=== PATIENT | male | born 1950 | race Caucasian/White ===

== ENCOUNTER → 2016-08-16 | Outpatient (REF) ==
[~2016-08-16] MED LIST: ACTOS 45MG45 MG/TAB PO; ACTOS45 MG PO; ASPIRIN 32325 MG/TAB PO; ASPIRIN E.C. 8181 MG PO; DIABETIC MEDICATION; DIOVAN 80MG80 MG PO; FLEXERIL 1010 MG/TAB PO; LISINOPRIL5 MG PO; LOW DOSE ASPIRI81 MG PO; METOPROLOL SUCC25 M1 PO; NITROSTAT0.4 MG/TAB SL; NORCO 325 MG-51 TAB PO; PLAVIX 75MG TAB75 MG PO; PROBIOTIC FORMU1 CAP PO; Probiotic; SIMVASTATIN40 MG PO; TOPROL XL 25MG25 MG PO; VIAGRA25 MG PO
[2016-08-16 09:37] LABS: PSA-TOTAL 0.56 ng/mL (0-4); THYROID STIMULATING HORMONE 0.669 uIU/mL (0.465-4.680)
== END ==
LOC: ZLAB.WCH 08:50
PROVIDERS: Internal Medicine
DX: Z01.89 Encounter for other specified special examinations (principal)
CPT/HCPCS: G0103

== ENCOUNTER → 2017-06-24 | Outpatient (REF) ==
[2017-06-24 16:37] LABS: PSA-TOTAL 0.41 ng/mL (0-4)
[2017-06-24 17:20] LABS: THYROID STIMULATING HORMONE 0.715 uIU/mL (0.465-4.680)
== END ==
LOC: ZLAB.WCH 15:33
PROVIDERS: Internal Medicine
DX: Z01.89 Encounter for other specified special examinations (principal)
CPT/HCPCS: G0103

== ENCOUNTER 2018-04-15 05:59 | Day surgery (SDC) | payer BC ==
[2018-04-15] VITALS (9 sets, daily range): BP systolic 128–144; BP diastolic 60–75; PULSE 66–100; TEMP 97.7
[~2018-04-15] VITALS: Ht 175.4 cm; Wt 97.0 kg
[2018-04-15] MEDS ORDERED: THEO-DUR 2200 MG/TAB PO (07:07)
[2018-04-15] MEDS ORDERED: EPA FISH OIL1 SGL PO (07:07)
[2018-04-15] MEDS ORDERED: PROBIOTIC ACID1 EAC3 PO (07:08)
[2018-04-15 07:12] LABS: HEMATOCRIT 42.5 % (42.0-52.0); HEMOGLOBIN 14.2 g/dl (13.5-18.0); MEAN CELL VOLUME 95 fl (80.0-100.0); MEAN CORPUSCULAR HEMOGLOBIN 32 pg (27.0-31.0); MEAN CORPUSCULAR HGB CONC 33 g/dl (33.0-37.0); MEAN PLATELET VOLUME 9.1 fl (7.4-10.4); PLATELET COUNT 186 K/mm3 (130-400); RED BLOOD COUNT 4.46 M/mm3 (4.20-5.60); REDCELL DISTRIBUTION WIDTH-CV 12.3 % (11.5-14.5)
[2018-04-15 07:26] LABS: CALCIUM 8.9 mg/dL (8.4-10.2); CREATININE, serum 1.05 mg/dL (0.66-1.25); POTASSIUM 4.6 mmol/L (3.4-5.0)
[2018-04-15 07:48] LABS: PROTHROMBIN TIME 11.7 SECONDS (9.7-12.8)
--- NOTE | 2018-04-15 08:52 | NUR ---
ALL MEDICATIONS GIVEN WITH VERBAL ORDER AND READBACK WITH MD. SEE MERGE FOR ALL MEDICATION ADMIN TIMES. SEE MERGE FOR ALL RASS ASSESSMENTS DURING AND POST PROCEDURE. POSITIVE BARBEAU'S TEST IN THE RIGHT WRIST.
--- NOTE | 2018-04-15 09:30 | NUR ---
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 Report from Elder CHAU. Pt alert and oriented, denies pain and needs at this time. VSS. Right wrist TR band with 12 cc air CD&I, Pulses strong and cap refill < 3 secs noted. Family bedside.
--- NOTE | 2018-04-15 11:30 | NUR ---
Deflated TR by 3 cc air. No bleeding noted
--- NOTE | 2018-04-15 11:43 | NUR ---
3 cc air out of TR band no bleeding noted
--- NOTE | 2018-04-15 12:10 | NUR ---
TR band completely deflated, no bleeding noted. Pressure dressing applied. INT discontinued intact. Discharge instruction given to pt/family. Transferred to private car by jose m
== END 2018-04-15 12:23 | disposition home or self-care (01) ==
LOC: COL.CAR 05:59
PROVIDERS: Internal Medicine Cardiovascular Disease
DX: I25.10 Atherosclerotic heart disease of native coronary artery without angina pectoris (principal); R94.39 Abnormal result of other cardiovascular function study; I10 Essential (primary) hypertension; E11.9 Type 2 diabetes mellitus without complications; E78.00 Pure hypercholesterolemia, unspecified; J45.909 Unspecified asthma, uncomplicated; J42 Unspecified chronic bronchitis; Z79.82 Long term (current) use of aspirin; Z87.891 Personal history of nicotine dependence; Z80.9 Family history of malignant neoplasm, unspecified; Z83.3 Family history of diabetes mellitus; Z82.49 Family history of ischemic heart disease and other diseases of the circulatory system; Z88.8 Allergy status to other drugs, medicaments and biological substances
CPT/HCPCS: J1644; J2250; J3010; Q9967

== ENCOUNTER 2020-08-22 06:25 | Day surgery (SDC) | payer BC ==
[~2020-08-22] VITALS: Ht 175.6 cm; Wt 92.9 kg
[2020-08-22] VITALS (12 sets, daily range): BP systolic 107–137; BP diastolic 49–77; PULSE 56–96; TEMP 97.6
[~2020-08-22 06:25] MED LIST changes: +EPA FISH OIL1 SGL PO; +PROBIOTIC ACID1 EAC3 PO; -SIMVASTATIN40 MG PO; +THEO-DUR 2200 MG/TAB PO; +ZOCOR 40MG40 MG PO
[2020-08-22] MEDS ORDERED: BENICAR 20MG TA20 MG PO (07:04)
[2020-08-22] MEDS ORDERED: VITAMIN D31000 IU PO (07:06)
[2020-08-22] MEDS ORDERED: POTASSIUM GLUC595 M1 PO (07:06)
[2020-08-22] MEDS ORDERED: B-121000 MCG PO (07:09)
[2020-08-22 07:23] LABS: INR 1.1 (0.8-3.0); PROTHROMBIN TIME 11.8 SECONDS (9.7-12.8)
[2020-08-22 07:25] LABS: CALCIUM 9.1 mg/dL (8.4-10.2); CREATININE, serum 1.27 (0.66-1.25); POTASSIUM 4.4 mmol/L (3.4-5.0)
[2020-08-22 07:28] LABS: HEMATOCRIT 41.5 % (42.0-52.0); HEMOGLOBIN 13.6 g/dl (13.5-18.0); MEAN CELL VOLUME 97 fl (80.0-100.0); MEAN CORPUSCULAR HEMOGLOBIN 32 pg (27.0-31.0); MEAN CORPUSCULAR HGB CONC 33 g/dl (33.0-37.0); MEAN PLATELET VOLUME 9.2 fl (7.4-10.4); PLATELET COUNT 177 K/mm3 (130-400); RED BLOOD COUNT 4.29 M/mm3 (4.20-5.60); REDCELL DISTRIBUTION WIDTH-CV 12.5 % (11.5-14.5)
--- NOTE | 2020-08-22 08:55 | NUR ---
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
--- NOTE | 2020-08-22 09:55 | NUR ---
Patient returned from [employer]. at side. Radial band intact to right wrist. Hand warm/pink. Pulse present. Denies any c/o pain/discomfort. Patient given discharge instructions. Provided ice water. No other needs at this time
--- NOTE | 2020-08-22 11:59 | NUR ---
Patient eating lunch. Denies any c/o pain/discomfort. Band remains with 15 ml of air. No hematoma noted. pulse present.
--- NOTE | 2020-08-22 12:30 | NUR ---
Noted a small amount of blood under TR band. Band reinfated 6cc will attempt again in 30 minutes.
--- NOTE | 2020-08-22 13:25 | NUR ---
Released 4ml of air from TR band. Patient without c/o's
--- NOTE | 2020-08-22 14:07 | NUR ---
Removed another 5cc of air at this time. No bleeding noted
--- NOTE | 2020-08-22 14:30 | NUR ---
Band completely released. No noted bleeding. Patient has a small soft bruise to inner aspect of wrist. Reviewed with patient if bruise gets large bruise or tighter to report to the ER. Patient verbalizes understanding. ISAC Trujillo also eval'd bruise. Masoud applied. No c/o's offered
--- NOTE | 2020-08-22 15:00 | NUR ---
Patient dischared to home at this time. Taken to the door via w/c.
== END 2020-08-22 15:00 | disposition home or self-care (01) ==
LOC: COL.CAR 06:25
PROVIDERS: Internal Medicine Cardiovascular Disease
DX: R06.02 Shortness of breath (principal); R94.39 Abnormal result of other cardiovascular function study; R06.00 Dyspnea, unspecified; J44.9 Chronic obstructive pulmonary disease, unspecified; I25.10 Atherosclerotic heart disease of native coronary artery without angina pectoris; E11.9 Type 2 diabetes mellitus without complications; E78.5 Hyperlipidemia, unspecified; I10 Essential (primary) hypertension; I27.20 Pulmonary hypertension, unspecified; Z20.822 Contact with and (suspected) exposure to COVID-19
CPT/HCPCS: C1769; J1644; J2250; J3010; Q9967

== ENCOUNTER → 2020-10-24 | Outpatient (CLI) | payer BC ==
[~2020-10-24] MED LIST changes: +B-121000 MCG PO; +BENICAR 20MG TA20 MG PO; +POTASSIUM GLUC595 M1 PO; +VITAMIN D31000 IU PO
== END ==
LOC: COL.PUL 10-11 10:54
DX: R06.00 Dyspnea, unspecified (principal)